=== PATIENT | male | born 1970 | race Caucasian/White ===

== ENCOUNTER 2019-03-05 17:34 | Emergency (ER) | payer MEDICAID ==
[~2019-03-05] VITALS: Ht 175.3 cm; Wt 108.0 kg
[~2019-03-05 17:34] MED LIST: FLO0.4C PO; ZOF4T PO
[2019-03-05 18:06] LABS: CLARITY,URINE CLEAR (Clear); COLOR,URINE YELLOW (Yellow); GLUCOSE, URINE NEGATIVE (Neg); KETONES,URINE NEGATIVE (Neg); LEUKOCYTE ESTERASE ,URINE NEGATIVE (Neg); NITRITES, URINE NEGATIVE (Neg); OCCULT BLOOD,URINE MODERATE (Neg); PH,URINE 6.5 (4.8-8.0); PROTEIN,URINE NEGATIVE (Neg); UROBILINOGEN,URINE 0.2 E.U/dL (0.2-1.0)
[2019-03-05 18:07] LABS: UA COLLECTION TYPE CLN CATCH MIDSTREAM
[2019-03-05] MEDS ORDERED: ketorolac trometh. 30mg/ml inj. IV ONE (18:10)
[2019-03-05] MEDS ORDERED: normal saline 1000ML IV soln IVB ONE (18:10)
[2019-03-05 18:21] LABS: SQUAMOUS EPITHELIAL CELL,UR FEW /LPF (FEW)
[2019-03-05 18:23] LABS: MUCUS STRANDS NONE SEEN /LPF (Neg); WBC,URINE 0-4 /HPF (0-4)
[2019-03-05 18:24] LABS: BACTERIA,URINE FEW /HPF (Neg)
[2019-03-05 18:26] LABS: CAL OXALATE CRYSTALS 1+ /HPF (NEGATIVE)
[2019-03-05 18:28] LABS: HEMATOCRIT 42.4 % (42.0-52.0); MEAN CORPUSCULAR HEMOGLOBIN 29.7 PG (27.0-31.0); MONOCYTES # (AUTO) 1.1 X10'3 (0-0.9); WHITE BLOOD COUNT 15.7 X10'3 (4.5-11.0)
[2019-03-05 18:30] LABS: BASOPHILS # (AUTO) 0.2 X10'3 (0-0.2); BASOPHILS % (AUTO) 1.1 % (0-1); EOSINOPHILS # (AUTO) 0.2 X10'3 (0-0.9); HEMOGLOBIN 14.5 g/dl (14.0-17.9); LYMPHOCYTES # (AUTO) 2.7 X10'3 (1.1-4.8); LYMPHOCYTES % (AUTO) 17.3 % (21-51); MEAN CORPUSCULAR HGB CONC 34.3 g/dL (33.0-36.5); MEAN CORPUSCULAR VOLUME 86.6 FL (78-98); MEAN PLATELET VOLUME 7.1 FL (7.4-10.4); MONOCYTES % (AUTO) 7.3 % (2-12); NEUTROPHILS # (AUTO) 11.5 X10'3 (1.8-7.7); NEUTROPHILS % (AUTO) 73.3 % (42-75); PLATELET COUNT 356 X10'3 (140-440); RED BLOOD COUNT 4.89 X10'6 (4.70-6.10); RED CELL DISTRIBUTION WIDTH 13.9 % (11.5-14.5)
[2019-03-05 18:47] LABS: ALANINE AMINOTRANSFERASE 18 U/L (12-78); ALBUMIN 3.6 G/DL (3.4-5.0); ALBUMIN/GLOBULIN RATIO 0.9 (1.1-1.5); ALKALINE PHOSPHATASE 56 IU/L (46-116); ANION GAP 10 (8-16); ASPARTATE AMINO TRANSFERASE 8 U/L (10-37); BILIRUBIN,TOTAL 0.6 MG/DL (0.1-1.0); BLOOD UREA NITROGEN 13 MG/DL (7-18); BUN/CREATININE RATIO 12.4 (5.4-32.0); CALCIUM 8.7 MG/DL (8.5-10.1); CHLORIDE 103 MMOL/L (99-107); CREATININE 1.05 MG/DL (0.60-1.10); GLUCOSE 82 MG/DL (70-104); POTASSIUM 3.6 MMOL/L (3.5-5.1); SODIUM 139 MMOL/L (135-145); TOTAL PROTEIN 7.4 G/DL (6.4-8.2); eGFR 76 ML/MIN
[2019-03-05] MEDS ORDERED: NAPR-56 PO (19:19)
[2019-03-05] MEDS ORDERED: FLO0.4C PO (19:19)
[2019-03-05 19:25] VITALS: BP 130/88
== END 2019-03-05 19:33 | disposition home or self-care (01) ==
LOC: ER 17:34
DX: N20.0 Calculus of kidney (principal); E78.00 Pure hypercholesterolemia, unspecified; I10 Essential (primary) hypertension; Z87.442 Personal history of urinary calculi; Z98.890 Other specified postprocedural states; Z79.899 Other long term (current) drug therapy
CPT/HCPCS: 36415; 80053; 81001; 85025; 85610; 96361; 96374; 99284; J1885; J7030